=== PATIENT | male | born 1950 | race Caucasian/White ===

== ENCOUNTER → 2016-09-25 | Outpatient (REF) | payer MEDICARE, OTHER ==
[~2016-09-25] MED LIST: CELE10TA PO; D 50CAP PO; DILT300C26 PO; EXCETAB68 PO; K-TA10TA2 PO; KEPP500T5 PO; PRIL20CA PO; TORS20TA2 PO; VALI2TAB PO
== END ==
LOC: M LAB REF 16:41
PROVIDERS: ATTEND Nurse Practitioner Adult Health
DX: E21.3 Hyperparathyroidism, unspecified (principal)

== ENCOUNTER → 2017-05-06 | Outpatient (CLI) | payer MEDICARE, BC, OTHER ==
[~2017-05-06] MED LIST changes: -DILT300C26 PO; +DILT300C46 PO; +KEPP500T13 PO; -KEPP500T5 PO; -PRIL20CA PO; +PRIL20CA9 PO
[2017-05-06 09:15] LABS: MEAN CORPUSCULAR HEMOGLOBIN 32.3 pg (27.0-33.0); MEAN CORPUSCULAR HGB CONC 35.4 g/dl (32.0-36.5); MEAN CORPUSCULAR VOLUME 91.1 fl (80.0-96.0); RED CELL DISTRIBUTION WIDTH 12.6 % (11.5-14.5); WHITE BLOOD COUNT 4.2 K/mm3 (4.0-10.0)
--- NOTE | 2017-05-06 09:36 | REP ---
Chest x-ray: Two views. History: Fatigue. Comparison chest x-ray: March 13 2016. Findings: There are a zone of linear fibrosis again noted at the left base laterally and medially in the right base medially unchanged. The pleural angles are sharp. No infiltrate is seen. Cardiomediastinal silhouette is unremarkable and unchanged. There are surgical sutures in the region of the left thyroid. No bony abnormality is seen. Impression: Bibasilar fibrosis. Surgical sutures in the left neck soft tissues. Otherwise no acute disease. Signed by Sergei Leyva MD 05/06/2017 09:28 A
[2017-05-06 09:54] LABS: ALBUMIN 3.6 GM/DL (3.2-5.2); ALKALINE PHOSPHATASE 74 U/L (45-117); ALT/SGPT 32 U/L (12-78); ANION GAP 5 MEQ/L (8-16); AST/SGOT 16 U/L (15-37); BILIRUBIN,TOTAL 0.7 MG/DL (0.2-1.0); BLOOD UREA NITROGEN 13 MG/DL (7-18); CALCIUM LEVEL 8.1 MG/DL (8.8-10.2); CARBON DIOXIDE LEVEL 29 MEQ/L (21-32); CHLORIDE LEVEL 110 MEQ/L (98-107); CHOLESTEROL LEVEL 179 MG/DL (<200); CREATININE FOR GFR 0.91 MG/DL (0.70-1.30); GLOMERULAR FILTRATION RATE > 60.0 (>49); GLUCOSE, FASTING 100 MG/DL (80-110); POTASSIUM SERUM 4.1 MEQ/L (3.5-5.1); SODIUM LEVEL 144 MEQ/L (136-145); TRIGLYCERIDES LEVEL 126 MG/DL (<150)
--- NOTE | 2017-05-08 19:42 | ECGEPIP ---
Stationary ECG Study [facility] Test Date: 2017-05-06 Pat Name: JB OCONNOR Department: Room: - Gender: M Inventory Manager: BRODERICK : 1950 Requested By: Michel Garcia Order Number: [id number] Reading MD: Talya Delacruz Measurements Intervals [place] Rate: 62 P: 60 GA: 200 QRS: 54 QRSD: 92 T: 48 QT: 389 QTc: 398 Interpretive Statements SINUS RHYTHM NO PRIOR Electronically Signed On 05-08-2017 19:42:27 EDT by Talya Delacruz
== END ==
LOC: M LAB 08:09
PROVIDERS: ATTEND Family Medicine
DX: R53.83 Other fatigue (principal); I10 Essential (primary) hypertension; N40.0 Benign prostatic hyperplasia without lower urinary tract symptoms; Z79.899 Other long term (current) drug therapy

== ENCOUNTER → 2017-11-04 | Outpatient (REF) | payer MEDICARE, BC, OTHER ==
[2017-11-04 20:07] LABS: ALT/SGPT 30 U/L (12-78)
[2017-11-04 20:07] LABS: AST/SGOT 20 U/L (7-37)
[2017-11-07 14:17] LABS: LEVETIRACETAM (KEPPRA) 7.9 ug/mL (10.0-40.0)
== END ==
LOC: M LABNEURO 13:42
DX: R42 Dizziness and giddiness (principal)
CPT/HCPCS: 84460

== ENCOUNTER → 2018-03-13 | Outpatient (REF) | payer MEDICARE, BC, OTHER ==
[2018-03-13 15:26] LABS: CALCIUM LEVEL 8.5 MG/DL (8.8-10.2)
[2018-03-13 15:35] LABS: TOTAL 25(OH) VITAMIN D 40.9 NG/ML (30.0-100.0)
[2018-03-13 15:35] LABS: PTH INTACT 75.6 PG/ML (18.5-88.0)
== END ==
LOC: M LABDRAW1 13:40
DX: E21.3 Hyperparathyroidism, unspecified (principal)
CPT/HCPCS: 82310

== ENCOUNTER → 2018-07-22 | Outpatient (REF) | payer MEDICARE, OTHER ==
[2018-07-22 14:18] LABS: CALCIUM LEVEL 8.6 MG/DL (8.8-10.2)
[2018-07-22 14:32] LABS: PTH INTACT 54.1 PG/ML (18.5-88.0)
== END ==
LOC: M LABDRAW1 13:52
DX: E21.3 Hyperparathyroidism, unspecified (principal)
CPT/HCPCS: 82310

== ENCOUNTER → 2019-01-20 | Outpatient (REF) | payer MEDICARE, OTHER ==
[~2019-01-20] MED LIST changes: +DILT1CAP7 PO; -DILT300C46 PO
[2019-01-20 12:16] LABS: CALCIUM LEVEL 8.2 MG/DL (8.8-10.2)
[2019-01-20 12:33] LABS: PTH INTACT 59.1 PG/ML (18.5-88.0); TOTAL 25(OH) VITAMIN D 37.2 NG/ML (30.0-100.0)
== END ==
LOC: M LABDRAW1 10:16
PROVIDERS: ATTEND Nurse Practitioner Family
DX: E21.3 Hyperparathyroidism, unspecified (principal)

== ENCOUNTER → 2019-03-05 | Outpatient (REF) | payer MEDICARE, OTHER | LOC: M LABNEURO 10:17 | PROVIDERS: ATTEND Nurse Practitioner Family | DX: E21.3 Hyperparathyroidism, unspecified (principal) ==

== ENCOUNTER → 2019-07-07 | Outpatient (REF) | payer MEDICARE, OTHER ==
[2019-07-07 12:06] LABS: BLOOD UREA NITROGEN 12 MG/DL (7-18); CARBON DIOXIDE LEVEL 28 MEQ/L (21-32); CHLORIDE LEVEL 106 MEQ/L (98-107); CREATININE FOR GFR 1.08 MG/DL (0.70-1.30); GLOMERULAR FILTRATION RATE > 60.0 (>49); GLUCOSE, FASTING 130 MG/DL (70-100); POTASSIUM SERUM 4.5 MEQ/L (3.5-5.1); SODIUM LEVEL 140 MEQ/L (136-145)
== END ==
LOC: M LABDRAW1 08:39
PROVIDERS: ATTEND Nurse Practitioner Family
DX: E21.3 Hyperparathyroidism, unspecified (principal)

== ENCOUNTER → 2019-10-07 | Outpatient (REF) | payer MEDICARE, OTHER | LOC: M LABNEURO 12:58 | PROVIDERS: ATTEND Physician Assistant Medical | DX: R55 Syncope and collapse (principal) ==

== ENCOUNTER 2020-03-17 03:45 | Emergency (ER) | payer MEDICARE, BC, OTHER ==
[~2020-03-17] VITALS: Ht 182.9 cm; Wt 108.6 kg
[2020-03-17] MEDS ORDERED: OXYC10TA3 PO (04:06)
[2020-03-17] MEDS ORDERED: LORA1TAB4 PO (04:06)
[2020-03-17] MEDS ORDERED: OMEP-218 PO (04:06)
[2020-03-17] MEDS ORDERED: ALPR0.5T3 PO (04:06)
[2020-03-17] MEDS ORDERED: oxyCODONE 5MG TAB PO ONE (05:00)
[2020-03-17 05:06] VITALS: BP 159/87
[2020-03-18] MEDS ORDERED: OXYC10TA3 PO (10:05)
== END 2020-03-17 05:07 | disposition home or self-care (01) ==
LOC: M ED 03:45
DX: G89.29 Other chronic pain (principal); M25.511 Pain in right shoulder; F11.20 Opioid dependence, uncomplicated; K21.9 Gastro-esophageal reflux disease without esophagitis; G40.909 Epilepsy, unspecified, not intractable, without status epilepticus; Z79.899 Other long term (current) drug therapy

== ENCOUNTER 2020-03-18 09:03 | Emergency (ER) | payer MEDICARE, BC, OTHER ==
[~2020-03-18] VITALS: Ht 182.9 cm; Wt 108.5 kg
[~2020-03-18 09:03] MED LIST changes: +ALPR0.5T3 PO; +LORA1TAB4 PO; +OMEP-218 PO; +OXYC10TA3 PO
[2020-03-18] MEDS ORDERED: OXYC10TA3 PO (10:05)
[2020-03-18 10:06] VITALS: BP 169/96
== END 2020-03-18 10:32 | disposition home or self-care (01) ==
LOC: M ED 09:03
DX: R51 Headache (principal); F11.20 Opioid dependence, uncomplicated

== ENCOUNTER → 2020-03-20 | Outpatient (CLI) | payer MEDICARE, OTHER | LOC: M OUTALCOH 08:31 | PROVIDERS: ATTEND Psychiatry & Neurology Addiction Medicine | DX: Z13.39 Encounter for screening examination for other mental health and behavioral disorders (principal) ==

== ENCOUNTER 2020-07-21 14:02 | Emergency (ER) | payer MEDICARE, BC, OTHER ==
[~2020-07-21] VITALS: Ht 182.9 cm; Wt 105.7 kg
[2020-07-21 14:03] VITALS: BP 196/96
[2020-07-21] MEDS ORDERED: ASPI-1 PO (14:32)
[2020-07-21] MEDS ORDERED: CALC600T61 PO (14:32)
[2020-07-21] MEDS ORDERED: HYDR25OIN TOP (14:32)
[2020-07-21] MEDS ORDERED: REST0.05 OP (14:32)
--- NOTE | 2020-07-21 14:55 | REP ---
INDICATION: fall injury;. Pain radiating from ankle to hip. COMPARISON: None. TECHNIQUE: Five views. FINDINGS: Five views of the right knee demonstrate normal bones, joints, and soft tissues. No fracture or subluxation is seen. No opaque foreign body noted. There is mild articular spurring at the superior and inferior pole of the patella. A normal fabella is noted. [place] views shows lateral patellofemoral spurring. IMPRESSION: Patellofemoral osteoarthritic spurring. No fracture or subluxation seen. No acute bony abnormality.. <Electronically signed by Tawanda Leyva > 07/21/20 [id number]
== END 2020-07-21 15:56 | disposition home or self-care (01) ==
LOC: M ED 14:02
DX: M19.90 Unspecified osteoarthritis, unspecified site (principal); S80.01XA Contusion of right knee, initial encounter; W18.39XA Other fall on same level, initial encounter; Y92.018 Other place in single-family (private) house as the place of occurrence of the external cause; I10 Essential (primary) hypertension; G89.29 Other chronic pain; Z79.899 Other long term (current) drug therapy; Z79.82 Long term (current) use of aspirin

== ENCOUNTER → 2021-02-21 | Outpatient (REF) | payer MEDICARE, OTHER ==
[~2021-02-21] MED LIST changes: +ASPI-1 PO; +CALC600T61 PO; +HYDR25OIN TOP; +REST0.05 OP
== END ==
LOC: M LABDRWAD 18:24
PROVIDERS: ATTEND Physician Assistant Medical
DX: R55 Syncope and collapse (principal); Z51.81 Encounter for therapeutic drug level monitoring; Z79.899 Other long term (current) drug therapy

== ENCOUNTER → 2022-05-05 | Outpatient (CLI) | payer MEDICARE, BC, OTHER ==
[~2022-05-05] MED LIST changes: +CLAR5TAB7 PO; +D-3-50003 PO; +LEVE500T88 PO; +OMEP-173 PO; -OMEP-218 PO
== END ==
LOC: M LABSMTC 10:56
PROVIDERS: ATTEND Anesthesiology
DX: Z11.52 Encounter for screening for COVID-19 (principal)

== ENCOUNTER → 2022-05-05 | Outpatient (CLI) | payer MEDICARE, BC, OTHER ==
[~2022-05-05] MED LIST changes: +OXYC1TAB23 PO
== END ==
LOC: M EKG 11:07
PROVIDERS: ATTEND Anesthesiology
DX: Z01.810 Encounter for preprocedural cardiovascular examination (principal)

== ENCOUNTER 2022-05-09 10:36 | Day surgery (SDC) | payer MEDICARE, BC, OTHER ==
[~2022-05-09] VITALS: Ht 182.9 cm; Wt 106.1 kg
[~2022-05-09 10:36] MED LIST changes: +LR 1,000 ML IV SCH; -OXYC1TAB23 PO
[2022-05-09 12:02] LABS: BLOOD UREA NITROGEN 18 MG/DL (7-18); CALCIUM LEVEL 9.2 MG/DL (8.8-10.2); CARBON DIOXIDE LEVEL 28 MEQ/L (21-32); CHLORIDE LEVEL 109 MEQ/L (98-107); CREATININE FOR GFR 0.88 MG/DL (0.70-1.30); GLOMERULAR FILTRATION RATE > 60.0 (>42); GLUCOSE, FASTING 126 MG/DL (70-100); POTASSIUM SERUM 4.5 MEQ/L (3.5-5.1); SODIUM LEVEL 140 MEQ/L (136-145)
[2022-05-09] MEDS ORDERED: fentaNYL 100 MCG/2 ML INJECTION As Ordered ONE (14:00)
[2022-05-09] MEDS ORDERED: LIDOCAINE 2% 100MG/5ML SDV (FOR ANES.) As Ordered ONE (14:00)
[2022-05-09] MEDS ORDERED: propofoL 200 MG/20 ML VIAL As Ordered ONE (14:00)
[2022-05-09] MEDS ORDERED: MIDAZOLAM INJ 2MG/2ML VIAL (J2250 PER 1MG) As Ordered ONE (14:00)
[2022-05-09] MEDS ORDERED: KETOROLAC 60MG 2ML VIAL As Ordered ONE (14:01)
[2022-05-09] MEDS ORDERED: dexameTHASONE 4 MG/ML 1ML VIAL (J1100 PER 1MG) As Ordered ONE (14:01)
[2022-05-09] MEDS ORDERED: ROCURONIUM BROMIDE 50 MG/5 ML VIAL As Ordered ONE ×3 (14:01→17:16)
[2022-05-09] MEDS ORDERED: ONDANSETRON 4MG 2ML VIAL As Ordered ONE (14:01)
[2022-05-09] MEDS ORDERED: KETAMINE HCL 200 MG/20 ML VIAL As Ordered ONE (14:10)
[2022-05-09] MEDS ORDERED: BUPIVACAINE HCL 0.25% 30ML VIAL As Ordered ONE (14:40)
[2022-05-09] MEDS ORDERED: HYDROmorphone HCL 2MG/ML 1ML VIAL As Ordered ONE (15:56)
[2022-05-09] MEDS ORDERED: SUGAMMADEX SODIUM 500 MG/5 ML VIAL (BRIDION) As Ordered ONE (17:17)
[2022-05-09] MEDS ORDERED: ACETAMINOPHEN 1000MG 100ML IV BTL (OFIRMEV) (J0131 PER 10MG) As Ordered ONE (17:54)
[2022-05-09] MEDS ORDERED: MEPERIDINE INJ 25 MG/ML VIAL (J2175) IV PRN (18:10)
[2022-05-09] MEDS ORDERED: LR 1,000 ML IV SCH (18:10)
[2022-05-09] MEDS ORDERED: oxyCODONE 5MG TAB PO PRN (18:10)
[2022-05-09] MEDS ORDERED: ONDANSETRON 4MG 2ML VIAL IV PRN (18:10)
[2022-05-09] MEDS: fentaNYL 100 MCG/2 ML INJECTION IV PRN ×2 (18:28→18:35)
[2022-05-09] MEDS ORDERED: OXYC1TAB23 PO (19:26)
[2022-05-09 19:35] VITALS: BP 138/83
== END 2022-05-09 19:36 | disposition home or self-care (01) ==
LOC: M SDC 10:36
PROVIDERS: ATTEND Surgery
DX: K40.30 Unilateral inguinal hernia, with obstruction, without gangrene, not specified as recurrent (principal); I10 Essential (primary) hypertension; E78.9 Disorder of lipoprotein metabolism, unspecified; K21.9 Gastro-esophageal reflux disease without esophagitis; M19.90 Unspecified osteoarthritis, unspecified site; Z86.73 Personal history of transient ischemic attack (TIA), and cerebral infarction without residual deficits; Z79.899 Other long term (current) drug therapy
CPT/HCPCS: 36415; 49651; 80048; 88302; C1781; J0131; J1100; J1170; J1885; J2250; J2405; J3010; S2900

== ENCOUNTER → 2022-06-05 | Outpatient (CLI) | payer MEDICARE, BC, OTHER ==
[~2022-06-05] MED LIST changes: -LR 1,000 ML IV SCH; +OXYC1TAB23 PO
== END ==
LOC: M RAD 14:13
PROVIDERS: ATTEND Physician Assistant
DX: K40.90 Unilateral inguinal hernia, without obstruction or gangrene, not specified as recurrent (principal); N43.3 Hydrocele, unspecified; L72.0 Epidermal cyst

== ENCOUNTER → 2023-03-05 | Outpatient (CLI) | payer MEDICARE, BC, OTHER ==
[~2023-03-05] MED LIST changes: -DILT1CAP7 PO; +DILT300C16 PO; -K-TA10TA2 PO; +LORA1TAB23 PO; -LORA1TAB4 PO; +POTA-165 PO
[2023-03-05 14:51] LABS: BASO % 0.8 % (0.0-1.0); EOS # 0.4 10^3/uL (0.0-0.5); EOS % 7.1 % (0.0-3.0); HEMATOCRIT 42.8 % (42.0-52.0); HEMOGLOBIN 14.3 g/dl (13.5-17.5); LYMPH # 1.1 10^3/uL (1.5-5.0); LYMPH % 21.7 % (24.0-44.0); MEAN CORPUSCULAR HEMOGLOBIN 30.7 pg (27.0-33.0); MEAN CORPUSCULAR HGB CONC 33.4 g/dl (32.0-36.5); MEAN CORPUSCULAR VOLUME 91.8 fl (80.0-96.0); MONO # 0.5 10^3/uL (0.0-0.8); MONO % 10.7 % (2.0-8.0); NEUTROPHILS % 59.3 % (36.0-66.0); PLATELET COUNT, AUTOMATED 200 10^3/uL (150-450); RED BLOOD COUNT 4.66 10^6/uL (4.30-6.10); WHITE BLOOD COUNT 5.1 10^3/uL (4.0-10.0)
[2023-03-05 15:12] LABS: ALBUMIN 3.7 G/DL (3.2-5.2); ALKALINE PHOSPHATASE 74 U/L (46-116); ALT/SGPT 17 U/L (7.0-40); AST/SGOT < 8 U/L (<34); BILIRUBIN,TOTAL 0.5 MG/DL (0.3-1.2); BLOOD UREA NITROGEN 18 MG/DL (9-23); CALCIUM LEVEL 8.7 MG/DL (8.3-10.6); CARBON DIOXIDE LEVEL 28 MMOL/L (20-31); CHLORIDE LEVEL 106 MMOL/L (98-107); CREATININE FOR GFR 0.85 MG/DL (0.70-1.30); GLOMERULAR FILTRATION RATE > 60.0 (>42); GLUCOSE, FASTING 117 MG/DL (74-106); POTASSIUM SERUM 4.1 MMOL/L (3.5-5.1); SODIUM LEVEL 140 MMOL/L (136-145); TOTAL PROTEIN 5.8 G/DL (5.7-8.2)
== END ==
LOC: M LAB 14:11
PROVIDERS: ATTEND Psychiatry & Neurology Neurology
DX: R55 Syncope and collapse (principal); R25.1 Tremor, unspecified

== ENCOUNTER → 2023-08-22 | Outpatient (CLI) | payer MEDICARE, BC, OTHER ==
[2023-08-22 10:37] LABS: HEMOGLOBIN 13.8 g/dl (13.5-17.5); MEAN CORPUSCULAR HEMOGLOBIN 31.2 pg (27.0-33.0); MEAN CORPUSCULAR HGB CONC 33.7 g/dl (32.0-36.5); MEAN CORPUSCULAR VOLUME 92.8 fl (80.0-96.0); PLATELET COUNT, AUTOMATED 189 10^3/uL (150-450); RED BLOOD COUNT 4.42 10^6/uL (4.30-6.10); WHITE BLOOD COUNT 4.9 10^3/uL (4.0-10.0)
[2023-08-22 10:48] LABS: HEMOGLOBIN A1c 6.1 % (4.0-6.0)
[2023-08-22 11:05] LABS: ALBUMIN 3.6 G/DL (3.2-5.2); ALKALINE PHOSPHATASE 77 U/L (46-116); ALT/SGPT 14 U/L (7.0-40); AST/SGOT 11 U/L (<34); BILIRUBIN,TOTAL 0.8 MG/DL (0.3-1.2); BLOOD UREA NITROGEN 16 MG/DL (9-23); CALCIUM LEVEL 8.6 MG/DL (8.3-10.6); CARBON DIOXIDE LEVEL 29 MMOL/L (20-31); CHLORIDE LEVEL 104 MMOL/L (98-107); CHOLESTEROL LEVEL 181 MG/DL (<200); CHOLESTEROL RISK RATIO 3.51 (<5); CREATININE FOR GFR 0.83 MG/DL (0.70-1.30); FREE T4 1.17 NG/DL (0.89-1.76); GLOMERULAR FILTRATION RATE > 60.0 (>42); GLUCOSE, FASTING 104 MG/DL (74-106); HDL CHOLESTEROL 51.5 MG/DL (>40); LDL CHOLESTEROL 117.7 MG/DL (<100); NON-HDL-C 129.5 MG/DL; POTASSIUM SERUM 4.2 MMOL/L (3.5-5.1); PROSTATIC SPECIFIC AG MONITOR 4.74 NG/ML (< 4.00); PTH INTACT 55.8 PG/ML (18.5-88.0); SODIUM LEVEL 138 MMOL/L (136-145); TESTOSTERONE 548 NG/DL (241-827); THYROID STIMULATING HORMONE 2.062 uIU/ML (0.55-4.78); TOTAL PROTEIN 5.8 G/DL (5.7-8.2); TOTAL T3 161.9 NG/DL (60.0-181.0); TRIGLYCERIDES LEVEL 59 MG/DL (<150)
== END ==
LOC: M LAB 09:43
PROVIDERS: ATTEND Family Medicine
DX: I10 Essential (primary) hypertension (principal); R53.83 Other fatigue; E03.9 Hypothyroidism, unspecified; Z79.899 Other long term (current) drug therapy; Z12.5 Encounter for screening for malignant neoplasm of prostate

== ENCOUNTER → 2024-04-06 | Outpatient (CLI) | payer MEDICARE, BC ==
[2024-04-06 12:36] LABS: HEMATOCRIT 41.8 % (42.0-52.0); MEAN CORPUSCULAR HGB CONC 33.5 g/dl (32.0-36.5); MEAN CORPUSCULAR VOLUME 92.5 fl (80.0-96.0); PLATELET COUNT, AUTOMATED 210 10^3/uL (150-450); RED BLOOD COUNT 4.52 10^6/uL (4.30-6.10); WHITE BLOOD COUNT 6.1 10^3/uL (4.0-10.0)
[2024-04-06 13:05] LABS: HEMOGLOBIN A1c 6.5 % (4.0-6.0)
[2024-04-06 13:06] LABS: PROSTATIC SPECIFIC AG MONITOR 5.64 NG/ML (< 4.00)
[2024-04-06 13:08] LABS: ALBUMIN 3.9 G/DL (3.2-5.2); ALKALINE PHOSPHATASE 82 U/L (46-116); ALT/SGPT 17 U/L (7.0-40); AST/SGOT 14 U/L (<34); BILIRUBIN,TOTAL 0.8 MG/DL (0.3-1.2); BLOOD UREA NITROGEN 19 MG/DL (9-23); CALCIUM LEVEL 8.9 MG/DL (8.3-10.6); CARBON DIOXIDE LEVEL 29 MMOL/L (20-31); CHLORIDE LEVEL 107 MMOL/L (98-107); CHOLESTEROL LEVEL 211 MG/DL (<200); CHOLESTEROL RISK RATIO 4.16 (<5); CREATININE FOR GFR 0.93 MG/DL (0.70-1.30); GLOMERULAR FILTRATION RATE > 60.0 (>42); GLUCOSE, FASTING 111 MG/DL (74-106); HDL CHOLESTEROL 50.6 MG/DL (>40); NON-HDL-C 160.4 MG/DL; POTASSIUM SERUM 3.9 MMOL/L (3.5-5.1); SODIUM LEVEL 142 MMOL/L (136-145); TOTAL PROTEIN 6.1 G/DL (5.7-8.2); TRIGLYCERIDES LEVEL 67 MG/DL (<150)
[2024-04-06 13:10] LABS: TESTOSTERONE 673 NG/DL (241-827); THYROID STIMULATING HORMONE 2.118 uIU/ML (0.55-4.78)
== END ==
LOC: M LAB 12:15
PROVIDERS: ATTEND Family Medicine
DX: I10 Essential (primary) hypertension (principal); R53.83 Other fatigue; E03.9 Hypothyroidism, unspecified; Z79.899 Other long term (current) drug therapy

== ENCOUNTER → 2024-05-25 | Outpatient (CLI) | payer MEDICARE, BC ==
[2024-05-25 15:09] LABS: HEMATOCRIT 39.6 % (42.0-52.0); HEMOGLOBIN 13.6 g/dl (13.5-17.5); MEAN CORPUSCULAR HEMOGLOBIN 31.7 pg (27.0-33.0); MEAN CORPUSCULAR HGB CONC 34.3 g/dl (32.0-36.5); MEAN CORPUSCULAR VOLUME 92.3 fl (80.0-96.0); PLATELET COUNT, AUTOMATED 245 10^3/uL (150-450); RED BLOOD COUNT 4.29 10^6/uL (4.30-6.10); WHITE BLOOD COUNT 6.4 10^3/uL (4.0-10.0)
[2024-05-25 15:43] LABS: ALBUMIN 3.7 G/DL (3.2-5.2); ALKALINE PHOSPHATASE 102 U/L (46-116); ALT/SGPT 12 U/L (7.0-40); AST/SGOT < 8 U/L (<34); BILIRUBIN,TOTAL 0.5 MG/DL (0.3-1.2); BLOOD UREA NITROGEN 19 MG/DL (9-23); CARBON DIOXIDE LEVEL 34 MMOL/L (20-31); CHLORIDE LEVEL 104 MMOL/L (98-107); CHOLESTEROL LEVEL 200 MG/DL (<200); CHOLESTEROL RISK RATIO 4.87 (<5); CREATININE FOR GFR 1.09 MG/DL (0.70-1.30); GLOMERULAR FILTRATION RATE > 60.0 (>42); GLUCOSE, FASTING 119 MG/DL (74-106); LDL CHOLESTEROL 123.8 MG/DL (<100); POTASSIUM SERUM 3.3 MMOL/L (3.5-5.1); SODIUM LEVEL 141 MMOL/L (136-145); TOTAL PROTEIN 6.2 G/DL (5.7-8.2); TRIGLYCERIDES LEVEL 176 MG/DL (<150)
[2024-05-25 15:48] LABS: THYROID STIMULATING HORMONE 1.424 uIU/ML (0.55-4.78)
[2024-05-25 15:49] LABS: HEMOGLOBIN A1c 6.5 % (4.0-6.0)
== END ==
LOC: M RAD 13:46
PROVIDERS: ATTEND Family Medicine
DX: I50.9 Heart failure, unspecified (principal); I11.0 Hypertensive heart disease with heart failure; R53.83 Other fatigue; E03.9 Hypothyroidism, unspecified; Z79.899 Other long term (current) drug therapy

== ENCOUNTER → 2024-06-03 | Outpatient (REF) | payer MEDICARE, BC | LOC: M SFHCDERM 17:39 | PROVIDERS: ATTEND Nurse Practitioner Family | DX: B07.9 Viral wart, unspecified (principal) ==

== ENCOUNTER → 2024-07-17 | Outpatient (CLI) | payer MEDICARE, BC ==
[2024-07-20 14:51] LABS: PSA FREE 0.9 ng/mL; PSA TOTAL 8.3 ng/mL (< OR = 4.0)
== END ==
LOC: M LAB 09:55
PROVIDERS: ATTEND Nurse Practitioner Family
DX: R97.20 Elevated prostate specific antigen [PSA] (principal)

== ENCOUNTER → 2024-11-02 | Outpatient (REF) | payer MEDICARE, BC ==
[~2024-11-02] MED LIST changes: +BUPR1FIL SL; +POTA1TAB23 PO; +SUBO8MIS SL; +TAMS1CAP17 PO; +THERTAB52 PO
== END ==
LOC: M SMT 12:51
PROVIDERS: ATTEND Urology
DX: C61 Malignant neoplasm of prostate (principal); R97.20 Elevated prostate specific antigen [PSA]; Z79.899 Other long term (current) drug therapy; Z87.442 Personal history of urinary calculi; Z80.41 Family history of malignant neoplasm of ovary

== ENCOUNTER 2024-11-04 22:21 | Inpatient (IN) | payer MEDICARE, BC ==
[~2024-11-04] VITALS: Ht 182.9 cm; Wt 107.3 kg
[~2024-11-04 22:21] MED LIST changes: -BUPR1FIL SL; -POTA1TAB23 PO; -SUBO8MIS SL; -TAMS1CAP17 PO; -THERTAB52 PO
[2024-11-04 23:00] LABS: BASO % 0.3 % (0.0-1.0); EOS % 0.1 % (0.0-3.0); HEMATOCRIT 38.3 % (42.0-52.0); HEMOGLOBIN 13.3 g/dl (13.5-17.5); LYMPH # 0.3 10^3/uL (1.5-5.0); LYMPH % 2.7 % (24.0-44.0); MEAN CORPUSCULAR HEMOGLOBIN 31.5 pg (27.0-33.0); MEAN CORPUSCULAR HGB CONC 34.7 g/dl (32.0-36.5); MEAN CORPUSCULAR VOLUME 90.8 fl (80.0-96.0); MONO # 0.6 10^3/uL (0.0-0.8); MONO % 5.4 % (2.0-8.0); NEUTROPHILS # 9.3 10^3/uL (1.5-8.5); NEUTROPHILS % 91.1 % (36.0-66.0); PLATELET COUNT, AUTOMATED 179 10^3/uL (150-450); RED BLOOD COUNT 4.22 10^6/uL (4.30-6.10); WHITE BLOOD COUNT 10.2 10^3/uL (4.0-10.0)
[2024-11-04 23:11] LABS: KETONE, URINE AUTO RFX NEGATIVE (NEGATIVE); MUCUS, URINE RFX SMALL (NEGATIVE); RBC, URINE AUTO RFX 163 /HPF (0-3); SQUAM EPITHELIAL CELL UR AURFX 0 /HPF (0-6)
[2024-11-04] MEDS: ACETAMINOPHEN *IV* 1,000 MG in IV 1 EA IV ONE (23:12)
[2024-11-04] MEDS: ONDANSETRON 4MG 2ML VIAL IV ONE (23:13)
[2024-11-04 23:22] LABS: INR 1.11; PARTIAL THROMBOPLASTIN TIME 26.5 SECONDS (24.8-34.2); PROTHROMBIN TIME 14.6 SECONDS (12.5-14.5)
[2024-11-04 23:24] LABS: LEUKOCYTE ESTERASE UR AUTO RFX 2+ (NEGATIVE); NITRITE, URINE AUTO RFX POSITIVE (NEGATIVE); WBC, URINE AUTO RFX 116 /HPF (0-3)
[2024-11-04 23:26] LABS: ALBUMIN 3.5 G/DL (3.2-5.2); BILIRUBIN,DIRECT 0.5 MG/DL (<0.4); BILIRUBIN,TOTAL 1.5 MG/DL (0.3-1.2); CALCIUM LEVEL 8.2 MG/DL (8.3-10.6); CREATININE FOR GFR 1.33 MG/DL (0.70-1.30); GLOMERULAR FILTRATION RATE 55.8 (>42); TOTAL PROTEIN 6.3 G/DL (5.7-8.2)
[2024-11-04 23:28] LABS: THYROID STIMULATING HORMONE 0.533 uIU/ML (0.55-4.78)
[2024-11-05] MEDS: cefTRIAXone SOD 1 GM in DEXTROSE 5% (D5W) ADV/MINI-BAG 50 ML IV ONE (00:35)
[2024-11-05 01:20] LABS: MAGNESIUM LEVEL 1.7 MG/DL (1.8-2.4)
[2024-11-05] MEDS: POTASSIUM CHLORIDE 10% LIQ 20MEQ/15ML UDC PO ONE (01:27)
[2024-11-05] MEDS ORDERED: HEPARIN SOD (PORCINE) 5000UNITS/ML 1ML VIAL/SYRINGE IV PRN (01:30)
[2024-11-05] MEDS ORDERED: MOM 30ML SUSPENSION UDC PO PRN (01:30)
[2024-11-05] MEDS ORDERED: TAMS1CAP17 PO (01:50)
[2024-11-05] MEDS ORDERED: TORS20TA2 PO (01:50)
[2024-11-05] MEDS ORDERED: SUBO8MIS SL (01:50)
[2024-11-05] MEDS ORDERED: POTA1TAB23 PO (01:50)
[2024-11-05] MEDS ORDERED: BUPR1FIL SL (01:50)
[2024-11-05] MEDS ORDERED: THERTAB52 PO (01:51)
[2024-11-05] MEDS ORDERED: HOME MED LIST COMPLETE! XX SCH (01:55)
[2024-11-05] MEDS: MAG SULF 1GM/100ML (MAG RUN) 1 GM in IV 1 EA IV ONE ×2 (02:25→03:30)
[2024-11-05] MEDS: HEPARIN DRIP 25,000 UNITS in IV 1 EA IV SCH (02:27)
[2024-11-05 03:09] LABS: CK-MB VALUE MASS 1.4 NG/ML (<3.6)
[2024-11-05 03:13] LABS: MB/CK RELATIVE INDEX 0.58 (< OR =4)
[2024-11-05] MEDS: KCL 10MEQ/100ML SWI (KRUN) 10 MEQ in IV 1 EA IV SCH (04:22)
[2024-11-05 06:26] LABS: BASO % 0.2 % (0.0-1.0); EOS % 0.5 % (0.0-3.0); HEMATOCRIT 38.1 % (42.0-52.0); HEMOGLOBIN 13.1 g/dl (13.5-17.5); LYMPH # 0.4 10^3/uL (1.5-5.0); LYMPH % 4.7 % (24.0-44.0); MEAN CORPUSCULAR HEMOGLOBIN 31.8 pg (27.0-33.0); MEAN CORPUSCULAR HGB CONC 34.4 g/dl (32.0-36.5); MEAN CORPUSCULAR VOLUME 92.5 fl (80.0-96.0); MONO # 0.5 10^3/uL (0.0-0.8); MONO % 6.2 % (2.0-8.0); NEUTROPHILS # 7.4 10^3/uL (1.5-8.5); PLATELET COUNT, AUTOMATED 177 10^3/uL (150-450); RED BLOOD COUNT 4.12 10^6/uL (4.30-6.10); WHITE BLOOD COUNT 8.4 10^3/uL (4.0-10.0)
[2024-11-05 06:52] LABS: ALBUMIN 3.2 G/DL (3.2-5.2); ALKALINE PHOSPHATASE 99 U/L (40-129); ALT/SGPT 11 U/L (7.0-40); AST/SGOT 13 U/L (<34); BILIRUBIN,TOTAL 0.9 MG/DL (0.3-1.2); BLOOD UREA NITROGEN 16 MG/DL (9-23); CALCIUM LEVEL 8.1 MG/DL (8.3-10.6); CARBON DIOXIDE LEVEL 30 MMOL/L (20-31); CHLORIDE LEVEL 99 MMOL/L (98-107); CREATININE FOR GFR 1.18 MG/DL (0.70-1.30); FREE T4 1.21 NG/DL (0.89-1.76); GLOMERULAR FILTRATION RATE > 60.0 (>42); GLUCOSE, FASTING 131 MG/DL (74-106); POTASSIUM SERUM 3.1 MMOL/L (3.5-5.1); SODIUM LEVEL 139 MMOL/L (136-145)
[2024-11-05] MEDS: ACETAMINOPHEN 325 MG TAB PO PRN (07:27)
[2024-11-05] MEDS ORDERED: dilTIAZem 120MG **CD** CAPSULE PO SCH (09:00)
[2024-11-05] MEDS: DOCUSATE SODIUM 100MG CAPSULE PO SCH (09:00)
[2024-11-05] MEDS: dilTIAZem 120MG **CD** CAPSULE PO SCH (09:35)
[2024-11-05] MEDS: TORSEMIDE 20 MG TAB PO SCH (09:36)
[2024-11-05] MEDS: TAMSULOSIN 0.4 MG CAP PO SCH (09:36)
[2024-11-05] MEDS: dilTIAZem **CD** 180MG CAP PO SCH (09:36)
[2024-11-05] MEDS: POTASSIUM CHLORIDE 10MEQ SR TABLET PO SCH (09:37)
[2024-11-05] MEDS: APIXABAN 5 MG TAB (ELIQUIS) PO SCH (14:42)
[2024-11-05] MEDS ORDERED: ACETAMINOPHEN 325 MG TAB PO PRN (20:25)
[2024-11-05] MEDS: levETIRAcetam **XR** 500 MG TABLET PO SCH (21:00)
[2024-11-05] MEDS: BUPRENORPHINE/NALOXONE 2-0.5MG SUBLINGUAL TABLET(SUBOXONE) SL SCH (21:28)
[2024-11-05] MEDS: cefTRIAXone SOD 1 GM in DEXTROSE 5% (D5W) ADV/MINI-BAG 50 ML IV SCH (21:29)
[2024-11-06 03:31] VITALS: BP 139/71; TEMP 98.5; O2SAT 96
[2024-11-06] MEDS: SIMETHICONE 80MG CHEW TAB PO ONE (05:50)
[2024-11-06 08:00] VITALS: BP 138/68; TEMP 98.3; O2SAT 91
[2024-11-06 10:13] VITALS: BP 140/72
[2024-11-06] MEDS: BUPRENORPHINE/NALOXONE 8-2MG SUBLINGUAL TABLET(SUBOXONE) SL SCH (10:15)
[2024-11-06 12:00] VITALS: BP 119/75; TEMP 98.3; O2SAT 91
[2024-11-06] MEDS ORDERED: CEFU50TA PO (15:08)
[2024-11-06] MEDS ORDERED: TORS20TA2 PO (15:09)
[2024-11-06] MEDS ORDERED: ELIQ5TAB PO (16:20)
== END 2024-11-06 16:20 | disposition home or self-care (01) | DRG 871 ==
LOC: EDBD 22:21 → M ED 22:21 → M ED INP 11-05 01:29 → EEVIPCON 11-05 01:29 → M PCU 11-06 03:40
PROVIDERS: ADMIT Family Medicine; ATTEND Student in an Organized Health Care Education/Training Program
PROC: B246ZZZ Ultrasonography of Right and Left Heart (ICD-10-PCS; principal; 2024-11-05)
DX: A41.9 Sepsis, unspecified organism (principal); G93.41 Metabolic encephalopathy; N17.9 Acute kidney failure, unspecified; N39.0 Urinary tract infection, site not specified; I48.0 Paroxysmal atrial fibrillation; I12.9 Hypertensive chronic kidney disease with stage 1 through stage 4 chronic kidney disease, or unspecified chronic kidney disease; K21.9 Gastro-esophageal reflux disease without esophagitis; M19.90 Unspecified osteoarthritis, unspecified site; N39.41 Urge incontinence; N18.30 Chronic kidney disease, stage 3 unspecified; E87.6 Hypokalemia; Z79.899 Other long term (current) drug therapy; Z86.73 Personal history of transient ischemic attack (TIA), and cerebral infarction without residual deficits

== ENCOUNTER → 2024-11-19 | Outpatient (REF) | payer MEDICARE, BC ==
[~2024-11-19] MED LIST changes: +BUPR1FIL SL; +CEFU50TA PO; +ELIQ5TAB PO; +POTA1TAB23 PO; +SUBO8MIS SL; +TAMS1CAP17 PO; +THERTAB52 PO
[2024-11-19 17:54] LABS: APPEARANCE, URINE CLEAR (CLEAR); BACTERIA, URINE AUTO 1+ (NEGATIVE); BILIRUBIN, URINE AUTO NEGATIVE (NEGATIVE); BLOOD, URINE BLOOD 1+ (NEGATIVE); COLOR, URINE STRAW (YELLOW); GLUCOSE, URINE (UA) AUTO NEGATIVE (NEGATIVE); KETONE, URINE AUTO NEGATIVE (NEGATIVE); LEUKOCYTE ESTERASE, URINE AUTO NEGATIVE (NEGATIVE); MUCUS, URINE SMALL (NEGATIVE); NITRITE, URINE AUTO NEGATIVE (NEGATIVE); PROTEIN, URINE AUTO NEGATIVE (NEGATIVE); RBC, URINE AUTO 1 /HPF (0-3); SPECIFIC GRAVITY URINE AUTO 1.006 (1.002-1.035); SQUAMOUS EPITHELIAL CELL UR AU 0 /HPF (0-6); UROBILINOGEN, URINE AUTO 0.2 mg/dL (0.0-2.0); WBC, URINE AUTO 5 /HPF (0-3)
== END ==
LOC: M SMT 16:59
PROVIDERS: ATTEND Urology
DX: N39.0 Urinary tract infection, site not specified (principal)

== ENCOUNTER → 2024-12-10 | Outpatient (REF) | payer MEDICARE, BC ==
[~2024-12-10] MED LIST changes: +ALCL0.05 TOP; +KETO2CR TOP; +KETO2SHA8 TOP; +SERT50TA29 PO
[2024-12-10 17:39] LABS: APPEARANCE, URINE CLOUDY (CLEAR); BACTERIA, URINE AUTO NEGATIVE (NEGATIVE); BILIRUBIN, URINE AUTO NEGATIVE (NEGATIVE); BLOOD, URINE BLOOD 3+ (NEGATIVE); COLOR, URINE YELLOW (YELLOW); GLUCOSE, URINE (UA) AUTO NEGATIVE (NEGATIVE); KETONE, URINE AUTO NEGATIVE (NEGATIVE); LEUKOCYTE ESTERASE, URINE AUTO 3+ (NEGATIVE); MUCUS, URINE SMALL (NEGATIVE); NITRITE, URINE AUTO NEGATIVE (NEGATIVE); PROTEIN, URINE AUTO 2+ mg/dL (NEGATIVE); RBC, URINE AUTO TNTC /HPF (0-3); SPECIFIC GRAVITY URINE AUTO 1.017 (1.002-1.035); SQUAMOUS EPITHELIAL CELL UR AU 1 /HPF (0-6); UROBILINOGEN, URINE AUTO 0.2 mg/dL (0.0-2.0); WBC, URINE AUTO TNTC /HPF (0-3)
== END ==
LOC: M SMT 16:52
PROVIDERS: ATTEND Nurse Practitioner Family
DX: R31.9 Hematuria, unspecified (principal)

== ENCOUNTER → 2024-12-29 | Outpatient (REF) | payer MEDICARE, BC ==
[~2024-12-29] MED LIST changes: +CIPR-249 PO; +SENO8.6T10 PO
[2024-12-29 15:22] LABS: APPEARANCE, URINE CLOUDY (CLEAR); BACTERIA, URINE AUTO 2+ (NEGATIVE); BILIRUBIN, URINE AUTO NEGATIVE (NEGATIVE); BLOOD, URINE BLOOD 3+ (NEGATIVE); COLOR, URINE YELLOW (YELLOW); GLUCOSE, URINE (UA) AUTO NEGATIVE (NEGATIVE); KETONE, URINE AUTO NEGATIVE (NEGATIVE); LEUKOCYTE ESTERASE, URINE AUTO 3+ (NEGATIVE); NITRITE, URINE AUTO NEGATIVE (NEGATIVE); PROTEIN, URINE AUTO 1+ mg/dL (NEGATIVE); RBC, URINE AUTO TNTC /HPF (0-3); SQUAMOUS EPITHELIAL CELL UR AU 0 /HPF (0-6); UROBILINOGEN, URINE AUTO 0.2 mg/dL (0.0-2.0); WBC, URINE AUTO TNTC /HPF (0-3)
== END ==
LOC: M SMT 15:01
PROVIDERS: ATTEND Urology
DX: Z01.818 Encounter for other preprocedural examination (principal); N20.0 Calculus of kidney; N39.0 Urinary tract infection, site not specified

== ENCOUNTER 2024-12-30 11:18 | Emergency (ER) | payer MEDICARE, BC ==
[~2024-12-30] VITALS: Ht 182.9 cm; Wt 102.1 kg
[~2024-12-30 11:18] MED LIST changes: -CIPR-249 PO
[2024-12-30 13:00] LABS: BASO % 0.3 % (0.0-1.0); EOS % 0.1 % (0.0-3.0); HEMATOCRIT 33.3 % (42.0-52.0); HEMOGLOBIN 11.2 g/dl (13.5-17.5); LYMPH # 0.5 10^3/uL (1.5-5.0); LYMPH % 5.4 % (24.0-44.0); MEAN CORPUSCULAR HEMOGLOBIN 30.8 pg (27.0-33.0); MEAN CORPUSCULAR HGB CONC 33.6 g/dl (32.0-36.5); MEAN CORPUSCULAR VOLUME 91.5 fl (80.0-96.0); MONO # 1.1 10^3/uL (0.0-0.8); MONO % 11.1 % (2.0-8.0); NEUTROPHILS # 7.8 10^3/uL (1.5-8.5); NEUTROPHILS % 82.7 % (36.0-66.0); PLATELET COUNT, AUTOMATED 215 10^3/uL (150-450); RED BLOOD COUNT 3.64 10^6/uL (4.30-6.10); WHITE BLOOD COUNT 9.5 10^3/uL (4.0-10.0)
[2024-12-30 13:41] LABS: PROCALCITONIN 0.36 ng/ml
[2024-12-30 14:17] LABS: ALBUMIN 2.9 G/DL (3.2-5.2); BILIRUBIN,DIRECT 0.4 MG/DL (<0.4); BILIRUBIN,TOTAL 1.1 MG/DL (0.3-1.2); C REACTIVE PROTEIN QUANTITATIV 22.7 MG/DL (<1.0); CALCIUM LEVEL 7.9 MG/DL (8.3-10.6); CREATININE FOR GFR 1.05 MG/DL (0.70-1.30); POTASSIUM SERUM 3.8 MMOL/L (3.5-5.1); TOTAL PROTEIN 5.5 G/DL (5.7-8.2)
[2024-12-30] MEDS ORDERED: CIPR-249 PO (14:57)
[2024-12-30] MEDS: CIPROFLOXACIN 500MG TABLET PO ONE (15:09)
[2024-12-30 15:10] VITALS: TEMP 99.1
[2024-12-30 15:34] VITALS: BP 122/76; O2SAT 95
== END 2024-12-30 15:34 | disposition home or self-care (01) ==
LOC: M ED 11:18 → EDBD 11:18 → M ED 15:34
DX: N39.0 Urinary tract infection, site not specified (principal); I48.91 Unspecified atrial fibrillation; I10 Essential (primary) hypertension; C61 Malignant neoplasm of prostate; K21.9 Gastro-esophageal reflux disease without esophagitis; Z87.442 Personal history of urinary calculi; Z79.01 Long term (current) use of anticoagulants; Z79.899 Other long term (current) drug therapy

== ENCOUNTER 2025-01-03 13:46 | Outpatient (CLI) | payer MEDICARE, BC ==
[~2025-01-03] VITALS: Ht 182.9 cm; Wt 102.3 kg
[2025-01-03 13:50] VITALS: BP 159/74; O2SAT 96
[2025-01-03] MEDS: MEROPENEM INJ 1 GM in IV 1 EA IV ONE (14:28)
[2025-01-03 15:00] VITALS: BP 144/74; O2SAT 96
== END 2025-01-03 15:15 ==
LOC: M INFU 13:46
PROVIDERS: ATTEND Internal Medicine Infectious Disease
DX: N39.0 Urinary tract infection, site not specified (principal)

== ENCOUNTER → 2025-01-03 | Outpatient (CLI) | payer MEDICARE, BC ==
[~2025-01-03] MED LIST changes: +CIPR-249 PO; +MAGN400C2 PO; +MERO1VIA3 IV; +MILKSUS3 PO; +SODIUM CHLORIDE 0.9% INJ 10 ML SYR IV PRN; +SODIUM CHLORIDE 0.9% INJ 10 ML SYR IV SCH; +VITA100066 PO
== END ==
LOC: M IRPRO 11:04
PROVIDERS: ATTEND Internal Medicine Infectious Disease
DX: N39.0 Urinary tract infection, site not specified (principal); N20.0 Calculus of kidney
CPT/HCPCS: 36410; 36415; 80048; 81001; 85027; 96365; C1751; J2184

== ENCOUNTER → 2025-01-03 | Outpatient (CLI) | payer MEDICARE, BC ==
[~2025-01-03] MED LIST changes: -MAGN400C2 PO; -MERO1VIA3 IV; -MILKSUS3 PO; -SODIUM CHLORIDE 0.9% INJ 10 ML SYR IV PRN; -SODIUM CHLORIDE 0.9% INJ 10 ML SYR IV SCH; -VITA100066 PO
[2025-01-03 12:27] LABS: APPEARANCE, URINE TURBID (CLEAR); BACTERIA, URINE AUTO 2+ (NEGATIVE); BILIRUBIN, URINE AUTO NEGATIVE (NEGATIVE); BLOOD, URINE BLOOD 3+ (NEGATIVE); COLOR, URINE AMBER (YELLOW); GLUCOSE, URINE (UA) AUTO NEGATIVE (NEGATIVE); KETONE, URINE AUTO NEGATIVE (NEGATIVE); LEUKOCYTE ESTERASE, URINE AUTO 3+ (NEGATIVE); MUCUS, URINE SMALL (NEGATIVE); NITRITE, URINE AUTO POSITIVE (NEGATIVE); PROTEIN, URINE AUTO 2+ mg/dL (NEGATIVE); RBC, URINE AUTO TNTC /HPF (0-3); SPECIFIC GRAVITY URINE AUTO 1.015 (1.002-1.035); SQUAMOUS EPITHELIAL CELL UR AU 0 /HPF (0-6); UROBILINOGEN, URINE AUTO 0.2 mg/dL (0.0-2.0); WBC, URINE AUTO TNTC /HPF (0-3)
[2025-01-03 12:29] LABS: HEMATOCRIT 34.4 % (42.0-52.0); HEMOGLOBIN 11.3 g/dl (13.5-17.5); MEAN CORPUSCULAR HEMOGLOBIN 30.2 pg (27.0-33.0); MEAN CORPUSCULAR HGB CONC 32.8 g/dl (32.0-36.5); PLATELET COUNT, AUTOMATED 287 10^3/uL (150-450); RED BLOOD COUNT 3.74 10^6/uL (4.30-6.10); WHITE BLOOD COUNT 6.7 10^3/uL (4.0-10.0)
[2025-01-03 13:00] LABS: CALCIUM LEVEL 8.3 MG/DL (8.3-10.6); CREATININE FOR GFR 1.12 MG/DL (0.70-1.30); GLOMERULAR FILTRATION RATE 68.5 (>42); POTASSIUM SERUM 3.5 MMOL/L (3.5-5.1)
== END ==
LOC: M LAB 11:07
PROVIDERS: ATTEND Urology
DX: N20.0 Calculus of kidney (principal); N39.0 Urinary tract infection, site not specified; Z01.818 Encounter for other preprocedural examination

== ENCOUNTER 2025-01-12 06:09 | Day surgery (SDC) | payer MEDICARE, BC ==
[~2025-01-12] VITALS: Ht 182.9 cm; Wt 104.0 kg
[~2025-01-12 06:09] MED LIST changes: +KETO120S5 TOP; -KETO2SHA8 TOP; +LEVE1TAB43 PO; -LEVE500T88 PO; +MAGN400C2 PO; +MERO1VIA3 IV; +MILKSUS3 PO; +VITA100066 PO
[2025-01-12] MEDS ORDERED: ONDANSETRON 4MG 2ML VIAL As Ordered ONE (07:19)
[2025-01-12] MEDS ORDERED: fentaNYL 100 MCG/2 ML INJECTION As Ordered ONE (07:19)
[2025-01-12] MEDS ORDERED: propofoL 200 MG/20 ML VIAL As Ordered ONE (07:19)
[2025-01-12] MEDS ORDERED: MIDAZOLAM INJ 2MG/2ML VIAL As Ordered ONE (07:19)
[2025-01-12] MEDS ORDERED: dexmedeTOMIDine (4MCG/ML)200MCG/50ML BTL (PRECEDEX) As Ordered ONE (07:19)
[2025-01-12] MEDS ORDERED: LIDOCAINE 2% 100MG/5ML SDV (FOR ANES.) As Ordered ONE (07:22)
[2025-01-12] MEDS ORDERED: LIDOCAINE 5% OINT 30GM TUBE As Ordered ONE (07:25)
[2025-01-12] MEDS: MEROPENEM INJ 1 GM in IV 1 EA IV ONE (07:57)
[2025-01-12] MEDS ORDERED: ePHEDrine SULFATE 25 MG/5 ML(5MG/ML) SYRINGE As Ordered ONE (07:59)
[2025-01-12] MEDS ORDERED: PHENYLephrine 500MCG 5ML (100MCG/ML) SYRINGE As Ordered ONE (08:02)
[2025-01-12] MEDS: ISOVUE-300 61% 100ML VIAL As Ordered ONE (08:08)
[2025-01-12] MEDS ORDERED: ACETAMINOPHEN 1000MG/100ML IV BAG As Ordered ONE (08:09)
[2025-01-12] MEDS ORDERED: diphenhydrAMINE 50MG/ML VIAL IV PRN (08:45)
[2025-01-12] MEDS ORDERED: fentaNYL 100 MCG/2 ML INJECTION IV PRN (08:45)
[2025-01-12] MEDS ORDERED: MEPERIDINE 25 MG/ML 1ML VIAL IV PRN (08:45)
[2025-01-12] MEDS ORDERED: METOCLOPRAMIDE INJ 10MG/2ML VIAL IV PRN (08:45)
[2025-01-12] MEDS ORDERED: ONDANSETRON 4MG 2ML VIAL IV PRN (08:45)
[2025-01-12 10:32] VITALS: BP 133/66; TEMP 98; O2SAT 95
== END 2025-01-12 10:48 | disposition home or self-care (01) ==
LOC: M SDC 06:09
PROVIDERS: ATTEND Urology
DX: N13.6 Pyonephrosis (principal); C61 Malignant neoplasm of prostate; I10 Essential (primary) hypertension; E78.00 Pure hypercholesterolemia, unspecified; G43.B0 Ophthalmoplegic migraine, not intractable; K21.9 Gastro-esophageal reflux disease without esophagitis; Z79.899 Other long term (current) drug therapy; Z79.01 Long term (current) use of anticoagulants; Z79.891 Long term (current) use of opiate analgesic; Z86.73 Personal history of transient ischemic attack (TIA), and cerebral infarction without residual deficits; Z87.442 Personal history of urinary calculi
CPT/HCPCS: 52332; 52352; 76000; 82365; C1769; C1894; C2617; J0131; J1100; J2184; J2250; J2371; J2405; J3010; Q9967

== ENCOUNTER → 2025-01-26 | Outpatient (CLI) | payer MEDICARE, BC ==
[2025-01-26 14:38] LABS: HEMATOCRIT 38.1 % (42.0-52.0); HEMOGLOBIN 12.4 g/dl (13.5-17.5); MEAN CORPUSCULAR HEMOGLOBIN 29.5 pg (27.0-33.0); MEAN CORPUSCULAR HGB CONC 32.5 g/dl (32.0-36.5); MEAN CORPUSCULAR VOLUME 90.7 fl (80.0-96.0); PLATELET COUNT, AUTOMATED 257 10^3/uL (150-450); WHITE BLOOD COUNT 5.1 10^3/uL (4.0-10.0)
[2025-01-26 14:48] LABS: PROTHROMBIN TIME 13.6 SECONDS (12.5-14.5)
[2025-01-26 15:00] LABS: PROSTATIC SPECIFIC AG MONITOR 6.07 NG/ML (< 4.00)
[2025-01-26 15:07] LABS: CALCIUM LEVEL 8.9 MG/DL (8.3-10.6); CREATININE FOR GFR 0.9 MG/DL (0.70-1.30); GLOMERULAR FILTRATION RATE 89.1 (>42); POTASSIUM SERUM 4.1 MMOL/L (3.5-5.1)
== END ==
LOC: M RAD 13:43
PROVIDERS: ATTEND Urology
DX: Z01.818 Encounter for other preprocedural examination (principal); C61 Malignant neoplasm of prostate; Z79.01 Long term (current) use of anticoagulants

== ENCOUNTER → 2025-03-24 | Outpatient (CLI) | payer MEDICARE, BC ==
[~2025-03-24] MED LIST changes: +CALC600C3 PO; +COLA100C5 PO; +LEVE500T5 PO; +PERCOCET PO; +POTA1TAB22 PO
== END ==
LOC: M LAB 10:41
PROVIDERS: ATTEND Nurse Practitioner Family
DX: C61 Malignant neoplasm of prostate (principal)

== ENCOUNTER → 2025-04-18 | Outpatient (CLI) | payer MEDICARE, BC ==
[2025-04-18 19:05] LABS: CALCIUM LEVEL 8.7 MG/DL (8.3-10.6); CARBON DIOXIDE LEVEL 33.0 MMOL/L (20-31); CHLORIDE LEVEL 100.0 MMOL/L (98-107); CHOLESTEROL LEVEL 179.0 MG/DL (<200); CHOLESTEROL RISK RATIO 4.69 (<5); CREATININE FOR GFR 1.29 MG/DL (0.70-1.30); GLOMERULAR FILTRATION RATE 57.8 (>42); LDL CHOLESTEROL 110.5 MG/DL (<100); NON-HDL-C 140.9 MG/DL; PHOSPHORUS LEVEL 4.2 MG/DL (2.4-5.1); POTASSIUM SERUM 4.4 MMOL/L (3.5-5.1); SODIUM LEVEL 143.0 MMOL/L (136-145); TRIGLYCERIDES LEVEL 152.0 MG/DL (<150)
== END ==
LOC: M PLALAB 14:04
PROVIDERS: ATTEND Student in an Organized Health Care Education/Training Program
DX: K59.09 Other constipation (principal); I50.32 Chronic diastolic (congestive) heart failure; E78.2 Mixed hyperlipidemia

== ENCOUNTER → 2025-05-12 | Outpatient (REF) | payer MEDICARE, BC ==
[2025-05-12 14:12] LABS: APPEARANCE, URINE CLEAR (CLEAR); BACTERIA, URINE AUTO NEGATIVE (NEGATIVE); BILIRUBIN, URINE AUTO NEGATIVE (NEGATIVE); BLOOD, URINE BLOOD NEGATIVE (NEGATIVE); GLUCOSE, URINE (UA) AUTO 2+ mg/dL (NEGATIVE); KETONE, URINE AUTO NEGATIVE (NEGATIVE); LEUKOCYTE ESTERASE, URINE AUTO NEGATIVE (NEGATIVE); NITRITE, URINE AUTO NEGATIVE (NEGATIVE); PROTEIN, URINE AUTO NEGATIVE (NEGATIVE); RBC, URINE AUTO 0 /HPF (0-3); SPECIFIC GRAVITY URINE AUTO 1.017 (1.002-1.035); SQUAMOUS EPITHELIAL CELL UR AU 0 /HPF (0-6); UROBILINOGEN, URINE AUTO 0.2 mg/dL (0.0-2.0); WBC, URINE AUTO 13 /HPF (0-3)
== END ==
LOC: M SMT 13:17
PROVIDERS: ATTEND Nurse Practitioner Family
DX: N39.0 Urinary tract infection, site not specified (principal)

== ENCOUNTER → 2025-06-22 | Outpatient (CLI) | payer MEDICARE, BC | LOC: M RAD 07:56 | PROVIDERS: ATTEND Urology | DX: N20.0 Calculus of kidney (principal); C61 Malignant neoplasm of prostate ==